=== PATIENT | female | born 1950 | race Two or more races ===

== ENCOUNTER 2017-11-10 23:06 | Inpatient (IN) | payer OTHER, MEDICARE ==
[~2017-11-10] VITALS: Ht 157.5 cm; Wt 62.6 kg
--- NOTE | 2017-11-10 23:13 | NUR ---
PT BIB RA WITH A C/O HYPOTENTION. PT HAS TREMORS, BUT IS NOT ACITVLY SEIZING. PT IS TAKING TO DR. ENRIQUEZ. PT TAKEN TO ROOM #5. PT IS ON THE MONITOR AND CONTINUOUS PULSE OX. PT HAS 20G IV LT WRIST VULCANIZED FIBER UNIT OPERATOR. BLOOD DRAWN AND SENT TO LAB.
[2017-11-10 23:43] LABS: HEMATOCRIT 30 % (33-45); HEMOGLOBIN 9.8 g/dL (11.5-14.8); LYMPHOCYTES # (AUTO) 0.7 /CMM (0.8-4.8); LYMPHOCYTES % (AUTO) 4.7 % (20.0-44.0); MEAN CORPUSCULAR HEMOGLOBIN 30 PG (26.0-33.0); MEAN CORPUSCULAR HGB CONC 33 g/dl (31.0-36.0); MEAN CORPUSCULAR VOLUME 92 fL (82-100); MONOCYTES # (AUTO) 0.8 /CMM (0.1-1.30); MONOCYTES % (AUTO) 5.3 % (2.0-12.0); NEUTROPHILS # (AUTO) 12.9 /CMM (1.8-8.9); PLATELET COUNT (AUTO) 249 /CMM (150-450); RDW COEFFICIENT OF VARIATION 15.2 (11.5-15.0); RED BLOOD CELL COUNT(AUTO) 3.27 MIL/uL (4.0-5.2); WHITE BLOOD COUNT (AUTO) 14.4 K/uL (4.3-11.0)
[2017-11-10 23:52] LABS: CALCIUM, SERUM 8.6 mg/dL (8.5-10.1); CARBON DIOXIDE 22 mmol/L (21-32); CHLORIDE 100 mmol/L (98-107); CREATININE 3.7 mg/dL (0.6-1.3); GLUCOSE 173 mg/dL (74-106); POTASSIUM 3.6 mmol/L (3.5-5.1); SODIUM SERUM 140 mmol/L (136-145); UREA NITROGEN, BLOOD 58 mg/dL (7-18)
[2017-11-11] VITALS (24 sets, daily range): BP systolic 91–144; BP diastolic 26–79
[2017-11-11] LABS: TROPONIN I 0.026 ng/mL (0.00-0.056)
--- NOTE | 2017-11-11 | NUR ---
IN AND OUT JURADO CATH INSERTED. CLOUDY YELLOW URINE WITH SEDIMENT NOTED.
[2017-11-11 00:05] LABS: ALANINE AMINOTRANSFERASE 24 U/L (12-78); ALBUMIN 3.3 g/dL (3.4-5.0); ALKALINE PHOSPHATASE 60 U/L (46-116); ASPARTATE AMINOTRANSFERASE 32 U/L (15-37); B-TYPE NATRIURETIC PEPTIDE 2450 PG/ML (0-125); BILIRUBIN,DIRECT 0.1 mg/dL (0.0-0.2); BILIRUBIN,TOTAL 0.3 mg/dL (0.2-1.0); TOTAL PROTEIN, SERUM 7.2 g/dL (6.4-8.2)
--- NOTE | 2017-11-11 00:15 | NUR ---
LITER NS STARTED.
[2017-11-11] MEDS ORDERED: CEFTRIAXONE 1 G in IV D5W 50 ML IV ONE (00:30)
[2017-11-11 00:34] LABS: APPEARANCE,URINE SL CLOUDY (CLEAR); BILIRUBIN,URINE NEGATIVE (NEGATIVE); BLOOD, URINE 1+ Ery/uL (NEGATIVE); COLOR,URINE YELLOW (YELLOW); KETONES,URINE TRACE (NEGATIVE); LEUKOCYTE ESTERASE ,URINE 2+ (NEGATIVE); NITRITE, URINE NEGATIVE (NEGATIVE); PROTEIN,URINE 2+ mg/dl (NEGATIVE); UGLUCOSE NEGATIVE (NEGATIVE); UROBILINOGEN,URINE 0.2 EU/dL (0.2)
[2017-11-11 00:50] LABS: BACTERIA,URINE Few /HPF (None Seen); SQUAMOUS EPITHELIAL CELL,UR Rare /HPF (None Seen); WBC,URINE 51-80 /HPF (0-3)
[2017-11-11] MEDS ORDERED: CEFTRIAXONE 1GM BAG (ER ONLY) 50 ML IV ONE (00:51)
[2017-11-11] MEDS ORDERED: IV NS 0.9% 1,000 ML BAG IV ONE ×3 (01:00→01:30)
[2017-11-11] MEDS ORDERED: NOREPINEPHRINE 4 MG/4 ML AMPUL IV ONE (01:17)
[2017-11-11] MEDS ORDERED: NOREPINEPHRINE 8 MG in IV D5W 500 ML IV ONE (01:30)
--- NOTE | 2017-11-11 01:30 | NUR ---
PT APPEARS TO BE RESTING COMFORTABLY. PT'S DAUGHTER LEFT AND WILL RETURN IN THE AM.
--- NOTE | 2017-11-11 01:30 | NUR ---
LEVOPHED STARTED AT 2MCG/MIN, 4.36ML/HR
[2017-11-11] MEDS ORDERED: Z GUARD REMEDY 2 OZ OINT TP PRN (02:30)
[2017-11-11] MEDS ORDERED: HYDROCODONE/APAP 5/325MG 1 EACH TABLET PO PRN (02:30)
[2017-11-11] MEDS ORDERED: NOREPINEPHRINE 8 MG in IV D5W 500 ML IV PRN (02:30)
[2017-11-11] MEDS ORDERED: MAGNESIUM HYDROXIDE 30 ML UDC PO PRN (02:30)
[2017-11-11] MEDS ORDERED: ZOLPIDEM TARTRATE 5 MG TABLET PO PRN (02:30)
[2017-11-11] MEDS ORDERED: ONDANSETRON HCL/PF 4 MG/2 ML VIAL IVP PRN (02:30)
[2017-11-11] MEDS ORDERED: DEXTROSE 50%-WATER 50 ML DISP.SYRIN IV PRN (02:30)
--- NOTE | 2017-11-11 02:32 | NUR ---
REPORT GIVEN TO GEOVANI RÍOS - ICU. ENDORSED REASSESSMENT OF PT AFTER SEPSIS FLUID FINISHED INFUSING.
[2017-11-11] MEDS ORDERED: MEROPENEM 500 MG VIAL IV ONE (03:09)
[2017-11-11] MEDS: MEROPENEM 500 MG in IV NS 0.9% 50 ML IV SCH ×3 (03:11→14:46)
[2017-11-11] MEDS: IV NS 0.9% 1,000 ML IV PRN ×2 (03:12→19:00)
--- NOTE | 2017-11-11 05:03 | NUR ---
COMMUNITY OUTREACH MANAGER. ADMISSION. RECEIVED THE PT FROM ER VIA [employer]. ADMITTING DIAGNOSIS IS SEPSIS.WILL CONTINUE TO MONITOR VITALS. PT AWAKE, ALERT, FOLLOW COMMANDS. NURSING TECH SHOWING S TACH. OXYGEN 2L VIA NASAL CANNULA. SAT 98%. NO ACUTE DISTRESS NOTED. IV LT HAND 20G, LT WRIST 20G. FC PATENT. URINE DRAINING. IVF NS 75ML/H. HOB ELEVATED. TURN AND REPOSITION Q2H,
[2017-11-11 05:17] LABS: BASOPHILS % (AUTO) 0.1 % (0.0-2.0); EOSINOPHILS % (AUTO) 0.1 % (0.0-6.0); HEMATOCRIT 29 % (33-45); HEMOGLOBIN 9.9 g/dL (11.5-14.8); LYMPHOCYTES # (AUTO) 0.8 /CMM (0.8-4.8); LYMPHOCYTES % (AUTO) 6.9 % (20.0-44.0); MEAN CORPUSCULAR HEMOGLOBIN 30 PG (26.0-33.0); MEAN CORPUSCULAR HGB CONC 34 g/dl (31.0-36.0); MEAN CORPUSCULAR VOLUME 90 fL (82-100); MONOCYTES # (AUTO) 0.4 /CMM (0.1-1.30); MONOCYTES % (AUTO) 3.9 % (2.0-12.0); NEUTROPHILS # (AUTO) 10.2 /CMM (1.8-8.9); PLATELET COUNT (AUTO) 248 /CMM (150-450); RDW COEFFICIENT OF VARIATION 14.4 (11.5-15.0); RED BLOOD CELL COUNT(AUTO) 3.24 MIL/uL (4.0-5.2); WHITE BLOOD COUNT (AUTO) 11.4 K/uL (4.3-11.0)
[2017-11-11 05:35] LABS: CALCIUM, SERUM 7.6 mg/dL (8.5-10.1); CREATININE 2.4 mg/dL (0.6-1.3); POTASSIUM 3.9 mmol/L (3.5-5.1)
[2017-11-11 05:39] LABS: MAGNESIUM 1.5 mg/dL (1.8-2.4); PHOSPHORUS 4.1 mg/dL (2.5-4.9)
--- NOTE | 2017-11-11 06:25 | NUR ---
INDEPENDENT BEAUTY CONSULTANT. FC PLACED, WITH OUT DIFFICULTY.URINE DRAINING.
--- NOTE | 2017-11-11 07:15 | NUR ---
HEAD OPERATOR NOTES RECEIVED PATIENT AOX1-2 GRENADIAN SPEAKING , NOT IN ACUTE DISTRESS , RESPIRATIONS EVEN AND UNLABORED WITH SPO2 OF 100% VIA 2LPM NC , ST 120 ON BEDSIDE MONITOR , FC DRAINING WELL VIA GRAVITY WITH CLOUDY YELLOW URINE , L HAND # 20 AND L WRIST # 20 PATENT AND INTACT WITH NS @ 75ML/HR INFUSING WELL , ALL NEEDS ATTENDED , BED ON LOW AND LOCKED POSITION , SIDE RAILS X2 ,CALL LIGHT WITHIN REACH , HOB @ 35 WILL CONTINUE TO MONITOR
[2017-11-11] MEDS ORDERED: ESCI5TAB PO (08:06)
[2017-11-11] MEDS ORDERED: METF500T4 PO (08:06)
[2017-11-11] MEDS ORDERED: SITA50TA PO (08:06)
[2017-11-11] MEDS ORDERED: TAMS-12 PO (08:06)
[2017-11-11] MEDS ORDERED: GUAI5SYR PO (08:06)
[2017-11-11] MEDS ORDERED: ASCO500T9 PO (08:06)
[2017-11-11] MEDS ORDERED: ACET-868 PO (08:06)
[2017-11-11] MEDS ORDERED: ATOR10TA PO (08:06)
[2017-11-11] MEDS ORDERED: INSU100V7 SQ (08:06)
[2017-11-11] MEDS ORDERED: POLY15DR40 EACHEYE ×2 (08:06)
[2017-11-11] MEDS ORDERED: FAMO20TA8 PO (08:06)
[2017-11-11] MEDS ORDERED: MAGN400O6 PO (08:06)
[2017-11-11] MEDS ORDERED: ACET-2605 PO (08:06)
[2017-11-11] MEDS ORDERED: IBUP-1953 PO (08:06)
[2017-11-11] MEDS ORDERED: ERGO500040 PO (08:06)
[2017-11-11] MEDS ORDERED: LOSA50TA3 PO (08:06)
[2017-11-11] MEDS ORDERED: BLOO-697 IN (08:06)
[2017-11-11] MEDS ORDERED: IPRA3AMP IH (08:06)
[2017-11-11] MEDS ORDERED: ASPI1CPM PO (08:06)
[2017-11-11] MEDS ORDERED: FERR-58 PO (08:06)
[2017-11-11] MEDS ORDERED: GABA-532 PO (08:06)
[2017-11-11] MEDS ORDERED: TOPI25TA PO (08:07)
[2017-11-11] MEDS: BLOOD SUGAR DIAGNOSTIC 1 EACH STRIP IN SCH ×4 (08:44→21:58)
[2017-11-11] MEDS: HEPARIN SODIUM, PORCINE 5000 UNITS/1 ML VIAL SQ SCH ×2 (08:54→21:56)
--- NOTE | 2017-11-11 10:09 | NUR ---
BUSINESS PLANNING ANALYST NOTES SEEN BY DEBBY ANDRADE , DISCUSSED LABS , PENDING CULTURES , OFF PRESSORS WITH STABLE BP , AFEBRILE , TROPONIN OF 0.115 , SHOWED PATIENT POLST IN THE CHART , NO AUTOMATIC TYPEWRITER INSPECTOR REVIEWED AND PLACED CODE STATUS ORDER . PER AUTOMATIC TYPEWRITER INSPECTOR OK TO DOWNGRADE PT TO [facility]
[2017-11-11] MEDS ORDERED: ASPIRIN 325 MG TABLET PO ONE (10:30)
[2017-11-11] MEDS: ACETAMINOPHEN 325 MG TABLET PO PRN (12:00)
--- NOTE | 2017-11-11 12:00 | NUR ---
MC KAY MACHINE OPERATOR NOTES PT HAS A TEMPERATURE OF 102.7 F VIA ORAL THERMOMETER , COOLING MEASUSRES RENDERED , TYLENOL 650MG ADMINISTERED , WILL RE ASSESS TEMP
[2017-11-11] MEDS ORDERED: Magnesium 1GM/D5W 100ML PREMIX 100 ML IV SCH (12:24)
--- NOTE | 2017-11-11 13:00 | NUR ---
AERONAUTICAL ENGINEERING OFFICER NOTES PT TEMP OF 98.5 , WILL CONTINUE TO MONITOR
--- NOTE | 2017-11-11 13:40 | NUR ---
DELIMER NOTES RECEIVED A CALL FROM LAB REGARDING TROPONIN OF 1.114 , NOTIFIED DEBBY ANDRADE , PT DENIES CHEST PAIN AT THIS TIME , , F/U FOR CARDIO CONSULT , PER INSPECTOR AUTOMATIC TYPEWRITER ORDER ANOTHER TROPONIN AFTER 6 HOURS .ORDER CARRIED OUT Addendum: 11/11/17 at 1512 by RAMAN WEINSTEIN RN FOLLOWED UP WITH DEBBY ANDRADE TO REVIEW AND START MEDICATION RECON ,
--- NOTE | 2017-11-11 14:15 | NUR ---
SOFTWARE APPLICATIONS DEVELOPER NOTES TRANSFERRED PT TO [facility] VIA ACLS PROTOCOL , PT STABLE AT THIS TIME , TEMP OF 99.7 F , REPORT GIVEN TO RENATA FOR CONTINUITY OF CARE ,
--- NOTE | 2017-11-11 14:19 | NUR ---
[facility] RN NOTE PATIENT RECEIVED FROM ICU AWAKE ALERT X1 , OPEN EYES WHEN CALL HER NAME , PLACED ON TELE SR 81 , WITH JURADO CATH WITH YELLOW COLOR URINE, ON IVF ORDERED ORDERED IV HL ON LT HAND INTACT, NO REDNESS ,NO SWELLING NOTED , BED IN LOWEST AND LOCKED POSITION , ON 2L NC , NO SOB NOTED , CALL LIGHT WITHIN REACH, CONT ON COOLING MEASURE ,WILL CONT TO MONITOR CLOSELY
--- NOTE | 2017-11-11 17:30 | NUR ---
[facility] OLIVO NOTE PATENT UNABLE TO SWALLOW WELL,DEBBY CRUZ RN CONING MACHINE OPERATOR NOTIFIED WITH ORDER PUREE DIET AND BOOST , ORDER CARRIED OUT Addendum: 11/11/17 at 1818 by RENATA PALOMO RN FAMILY AT BEDSIDE ,ALL NEEDS ATTENDED NOT IN ACUTE DISTRESS
[2017-11-11] MEDS: BOOST GLUCOSE CONTROL VANILLA 237 ML BOX PO SCH (18:06)
--- NOTE | 2017-11-11 18:50 | NUR ---
[facility] RN NOTE TROPONIN 1.341 .CALLED DEBBY KRISHNAMURTHY RN MANAGER SUPPLY CHAIN PLANNING , NO C\O CHEST PAIN ,NO DIZZINESS, FAMILY AT BEDSIDE , NOTIFIED THAT DR KRUEGER DID NOT CAME YET , WILL F]U ORDERED REPEAT TROPONIN IN 6 HOUR AT 12 MIDNIGHT ,ORDER CARRIED OUT
--- NOTE | 2017-11-11 19:30 | NUR ---
[facility] RN INITIAL NOTES RECEIVED PATIENT AWAKE A/OX2, ABLE TO MAKE NEEDS KNOWN. TAJIK SPEAKING. DENIES PAIN OR DISCOMFORT. DENIES SOB. SKIN WARM AND DRY TO TOUCH. RESPIRATION EVEN AND UNLABORED, ON 3LPMO2 VIA NC. ON TELE MONITOR SR 87. F/C PATENT AND INTACT, DRAINING BY GRAVITY. HOB ELEVATED. SIDE RAILS UP AND LOCKED. BED KEPT AT LOWEST POSITION. CALL LIGHT KEPT WITHIN EASY REACH. WILL CONTINUE TO MONITOR.
[2017-11-11] MEDS: INSULIN REGULAR, HUMAN 100 UNIT/ML 3 ML VIAL SQ PRN (22:04)
[2017-11-12] VITALS (7 sets, daily range): BP systolic 105–157; BP diastolic 53–100
--- NOTE | 2017-11-12 02:00 | NUR ---
[facility] RN NOTES RECEIVED CRITICAL FROM LAB TROPONIN 1.011, TRENDING DOWN FROM PREVIOUS 1.341, TAM HILTON MADE AWARE WITH NO NEW ORDERS. WILL CONTINUE TO MONITOR.
[2017-11-12] MEDS: MEROPENEM 500 MG in IV NS 0.9% 50 ML IV SCH ×2 (03:15→15:29)
[2017-11-12] MEDS: ACETAMINOPHEN 325 MG TABLET PO PRN ×2 (04:08→17:17)
--- NOTE | 2017-11-12 04:31 | NUR ---
PATIENT AWAKE ALERT AND ORIENTED. NO RESPIRATORY DISTRESS NOTED. NOTED WITH ORAL TEMP 103.1, COOLING MEASURES RENDERED, WILL CONTINUE TO MONITOR.
--- NOTE | 2017-11-12 05:08 | NUR ---
RECHECKED TEMP 102.4. WILL CONTINUE TO COOLING MEASURES.
--- NOTE | 2017-11-12 06:30 | NUR ---
[facility] RN CLOSING NOTES PATIENT WITH TMAX 103.1, COOLING MEASURES AND TYLENOL RENDERED, CURRENTLY ORAL TEMP 98.5. NO C/O OF PAIN OR DISCOMFORT. NO RESPIRATORY DISTRESS NOTED, ON 2LPMO2 VIA NC. ALL NEEDS ANTICIPATED AND MET. SR ON TELE MONITOR. IVF RUNNING. HOB ELEVATED. DVT PUMPS IN PLACE. SIDE RAILS UP AND LOCKED. BED KEPT AT LOWEST POSITION. CALL LIGHT KEPT WITHIN EASY REACH. WILL ENDORSE CONTINUITY OF CARE TO AM NURSE.
[2017-11-12] MEDS: BLOOD SUGAR DIAGNOSTIC 1 EACH STRIP IN SCH ×4 (08:23→21:16)
[2017-11-12] MEDS: BOOST GLUCOSE CONTROL VANILLA 237 ML BOX PO SCH ×2 (08:23→17:18)
[2017-11-12] MEDS: HEPARIN SODIUM, PORCINE 5000 UNITS/1 ML VIAL SQ SCH ×2 (08:25→21:11)
[2017-11-12 08:30] LABS: CALCIUM, SERUM 8.1 mg/dL (8.5-10.1); CREATININE 1.1 mg/dL (0.6-1.3); POTASSIUM 3.1 mmol/L (3.5-5.1)
[2017-11-12 08:33] LABS: MAGNESIUM 1.7 mg/dL (1.8-2.4); PHOSPHORUS 2.1 mg/dL (2.5-4.9)
[2017-11-12 08:43] LABS: BASOPHILS % (AUTO) 0.3 % (0.0-2.0); EOSINOPHILS % (AUTO) 0.1 % (0.0-6.0); HEMATOCRIT 31 % (33-45); HEMOGLOBIN 10.2 g/dL (11.5-14.8); LYMPHOCYTES # (AUTO) 0.8 /CMM (0.8-4.8); MEAN CORPUSCULAR HEMOGLOBIN 30 PG (26.0-33.0); MEAN CORPUSCULAR HGB CONC 33 g/dl (31.0-36.0); MEAN CORPUSCULAR VOLUME 90 fL (82-100); MONOCYTES # (AUTO) 0.3 /CMM (0.1-1.30); MONOCYTES % (AUTO) 4.6 % (2.0-12.0); NEUTROPHILS # (AUTO) 5.6 /CMM (1.8-8.9); PLATELET COUNT (AUTO) 255 /CMM (150-450); RDW COEFFICIENT OF VARIATION 14.2 (11.5-15.0); RED BLOOD CELL COUNT(AUTO) 3.44 MIL/uL (4.0-5.2); WHITE BLOOD COUNT (AUTO) 6.7 K/uL (4.3-11.0)
[2017-11-12] MEDS: IV NS 0.9% 1,000 ML IV PRN (10:10)
[2017-11-12] MEDS: Magnesium 1GM/D5W 100ML PREMIX 100 ML IV SCH ×2 (10:11→11:38)
[2017-11-12] MEDS: CARVEDILOL 6.25 MG TABLET PO SCH ×2 (10:11→20:45)
[2017-11-12] MEDS: POTASSIUM CHLORIDE 20 MEQ TAB.PRT.SR PO SCH ×3 (10:12→13:12)
[2017-11-12 11:24] LABS: BAND % (MANUAL) 7 % (0.0-5.0); LYMPHOCYTES % (MANUAL) 10 % (16-48); MONOCYTES % (MANUAL) 2 % (0-11.0); NEUTROPHILS % (MANUAL) 81 (42-76)
[2017-11-12] MEDS: INSULIN REGULAR, HUMAN 100 UNIT/ML 3 ML VIAL SQ PRN ×3 (11:48→21:15)
[2017-11-12] MEDS ORDERED: K PHOS NEUTRAL 250 MG TABLET PO ONE (14:00)
--- NOTE | 2017-11-12 14:00 | NUR ---
RN NOTE ASKED TO RACKING MACHINE OPERATOR NEGERETE TO REVIEW HOME MEDS FOR PT.
--- NOTE | 2017-11-12 15:58 | NUR ---
RN NOTE PT HAS A FEVER, 103.0 AXILLARY, COMMERCIAL ENERGY AUDITOR DEBBY ANDRADE NOTIFIED HE SAID TO ORDER BLOOD CULTURES AND HE WILL ASK ID TO SEE THE PT. COOLING MEASURES INITIATED. WILL MONITOR.
--- NOTE | 2017-11-12 17:15 | NUR ---
RN NOTE REPORT GIVEN TO HANSA OLIVO FOR ROBSON.
--- NOTE | 2017-11-12 17:30 | NUR ---
RN NOTES RECEIVED REPORT FROM POLLY FOR [facility]. PATIENT FEBRILE. COOLING MEASURES IMPLEMENTED. TYLENOL GIVEN.
--- NOTE | 2017-11-12 19:40 | NUR ---
RN CLOSING NOTES PATIENT RESTING COMFORTABLE IN BED. DENIES PAIN. RESPIRATIONS EVEN AND UNLABORED. SATURATING ADEQUATELY ON 2L. NO ACUTE DISTRESS. BED LOCKED IN THE LOWEST POSITION WITH SIDERAILS UP X2. CALL LIGHT WITHIN REACH. AFEBRILE. WILL ENDORSE TO NIGHT RN FOR ROBSON.
[2017-11-12] MEDS ORDERED: ASPIRIN 81 MG TAB.CHEW ONE (20:50)
[2017-11-12] MEDS: ASPIRIN 81 MG TAB.CHEW PO SCH (21:11)
[2017-11-13] VITALS (7 sets, daily range): BP systolic 104–130; BP diastolic 57–77
[2017-11-13] MEDS ORDERED: CARVEDILOL 12.5 MG TABLET ONE (02:37)
[2017-11-13] MEDS: MEROPENEM 500 MG in IV NS 0.9% 50 ML IV SCH ×2 (02:43→14:58)
[2017-11-13] MEDS: IV NS 0.9% 1,000 ML IV PRN ×2 (02:44→22:05)
--- NOTE | 2017-11-13 02:49 | NUR ---
NURSING CLINICAL NOTES Pt has a HR of 122, Radha, is notified and ordered one time coreg 12.5 mg. order is carried out will continue to monitor for any changes.
[2017-11-13] MEDS ORDERED: CARVEDILOL 12.5 MG TABLET PO SCH (03:00)
[2017-11-13 06:34] LABS: BASOPHILS % (AUTO) 0.2 % (0.0-2.0); EOSINOPHILS % (AUTO) 0.2 % (0.0-6.0); HEMATOCRIT 31 % (33-45); HEMOGLOBIN 10.7 g/dL (11.5-14.8); LYMPHOCYTES # (AUTO) 0.7 /CMM (0.8-4.8); LYMPHOCYTES % (AUTO) 11.1 % (20.0-44.0); MEAN CORPUSCULAR HEMOGLOBIN 31 PG (26.0-33.0); MEAN CORPUSCULAR HGB CONC 34 g/dl (31.0-36.0); MEAN CORPUSCULAR VOLUME 89 fL (82-100); MONOCYTES # (AUTO) 0.4 /CMM (0.1-1.30); MONOCYTES % (AUTO) 7.3 % (2.0-12.0); NEUTROPHILS % (AUTO) 81.2 % (43.0-81.0); PLATELET COUNT (AUTO) 247 /CMM (150-450); RED BLOOD CELL COUNT(AUTO) 3.52 MIL/uL (4.0-5.2); WHITE BLOOD COUNT (AUTO) 6.1 K/uL (4.3-11.0)
[2017-11-13 06:48] LABS: CALCIUM, SERUM 7.9 mg/dL (8.5-10.1); CREATININE 0.9 mg/dL (0.6-1.3); POTASSIUM 3.7 mmol/L (3.5-5.1)
[2017-11-13] MEDS: BLOOD SUGAR DIAGNOSTIC 1 EACH STRIP IN SCH ×4 (06:49→22:12)
[2017-11-13 06:52] LABS: ALBUMIN 2.5 g/dL (3.4-5.0); BILIRUBIN,TOTAL 0.4 mg/dL (0.2-1.0); MAGNESIUM 2.1 mg/dL (1.8-2.4); PHOSPHORUS 1.8 mg/dL (2.5-4.9); TOTAL PROTEIN, SERUM 6.6 g/dL (6.4-8.2)
[2017-11-13 06:58] LABS: TROPONIN I 1.36 ng/mL (0.00-0.056)
--- NOTE | 2017-11-13 07:33 | NUR ---
NURSING CLINICAL NOTE: received a call from the lab regarding critical lab value of troponin of 1.360. pt is A&O X 3, denies chest pain. no distress noted. NP. clay is notified and ordered EKG and repeat troponin in 6 hours, all orders are carried out and endorsed to the next nurse to follow up .
--- NOTE | 2017-11-13 08:00 | NUR ---
rn telehealth note patient in bed . alert , oriented x3 on tele monitor sr 89, on 2l nc sat 99%, with hamilton cath to gravity with yellow color urine,, lt wrist hl with redness noted and leaking , lt hand hl intact will cont o ivf as ordered, bed in lowest and locked position ,, on both legs with dvt pumps as ordered, bed in lowest and locked position. no sob noted will cont to monitor closely
[2017-11-13] MEDS: ASPIRIN 81 MG TAB.CHEW PO SCH (08:13)
[2017-11-13] MEDS: HEPARIN SODIUM, PORCINE 5000 UNITS/1 ML VIAL SQ SCH ×2 (08:14→22:10)
[2017-11-13] MEDS: CARVEDILOL 6.25 MG TABLET PO SCH ×2 (08:16→22:11)
[2017-11-13] MEDS: BOOST GLUCOSE CONTROL VANILLA 237 ML BOX PO SCH ×2 (08:59→16:34)
[2017-11-13 11:46] LABS: LYMPHOCYTES % (MANUAL) 5 % (16-48); MONOCYTES % (MANUAL) 12 % (0-11.0); NEUTROPHILS % (MANUAL) 83 (42-76)
--- NOTE | 2017-11-13 12:00 | NUR ---
BIODIESEL PLANT OPERATIONS ENGINEER NOTE EKG RESULT NOTIFIED TO DEBBY COLES AWARE PHOS LEVEL 13.8 WITH NEW ORDER GIVEN, FED PATIENT BY ADMITTING MANAGER, ALL NEEDS ATTENDED
[2017-11-13] MEDS: INSULIN REGULAR, HUMAN 100 UNIT/ML 3 ML VIAL SQ PRN ×3 (12:38→22:14)
[2017-11-13] MEDS ORDERED: K PHOS NEUTRAL 250 MG TABLET PO ONE (13:30)
[2017-11-13] MEDS: ACETAMINOPHEN 325 MG TABLET PO PRN (15:05)
--- NOTE | 2017-11-13 20:00 | NUR ---
RN INITIAL NOTES PATIENT RESTING COMFORTABLE IN BED. DENIES PAIN. RESPIRATIONS EVEN AND UNLABORED. SATURATING ADEQUATELY ON 2L. NO ACUTE DISTRESS. BED LOCKED IN THE LOWEST POSITION WITH SIDERAILS UP X2. CALL LIGHT WITHIN REACH. WILL CONTINUE TO MONITOR.
[2017-11-13] MEDS ORDERED: CEFEPIME 1 GM in IV D5W 50 ML IV SCH (22:00)
[2017-11-13] MEDS: ATORVASTATIN 40 MG TABLET PO SCH (22:11)
[2017-11-14] VITALS (7 sets, daily range): BP systolic 128–159; BP diastolic 70–88
--- NOTE | 2017-11-14 06:34 | NUR ---
RN CLOSING NOTES PATIENT RESTING COMFORTABLE IN BED. DENIES PAIN. RESPIRATIONS EVEN AND UNLABORED. SATURATING ADEQUATELY ON 2L. NO ACUTE DISTRESS. BED LOCKED IN THE LOWEST POSITION WITH SIDE RAILS UP X2. CALL LIGHT WITHIN REACH. WILL ENDORSE TO AM RN.
--- NOTE | 2017-11-14 07:30 | NUR ---
YARN PREPARATION SUPERVISOR AM NOTES PT IN BED, AAOX3, ON 4L O2 NC, NOT IN ANY DISTRESS, HUNGARIAN SPPEAKING, TELEMETRY READS, SINUS TACH 100, DENIES ANY CHEST PAIN/DISCOMFORT, LEFT WRIST G 20 WITH NS AT 75 ML/HR INFUSING WELL, SITE CLEAR, JURADO CATH IN PLACE, ADEQUATE AMOUNT OF URINE OUTPUT. BED REST, INTACT SKIN, CCHO PUREED DIET, BOTH LEGS ON DVT, BED LOW LOCKED, CALL LIGHT WITHIN REACH, WILL CONT TO MONITOR.
[2017-11-14 07:49] LABS: BASOPHILS % (AUTO) 0.4 % (0.0-2.0); EOSINOPHILS % (AUTO) 0.3 % (0.0-6.0); HEMATOCRIT 28 % (33-45); HEMOGLOBIN 9.5 g/dL (11.5-14.8); LYMPHOCYTES # (AUTO) 1.1 /CMM (0.8-4.8); LYMPHOCYTES % (AUTO) 18.5 % (20.0-44.0); MEAN CORPUSCULAR HEMOGLOBIN 30 PG (26.0-33.0); MEAN CORPUSCULAR HGB CONC 33 g/dl (31.0-36.0); MEAN CORPUSCULAR VOLUME 89 fL (82-100); MONOCYTES # (AUTO) 0.7 /CMM (0.1-1.30); NEUTROPHILS # (AUTO) 4.3 /CMM (1.8-8.9); NEUTROPHILS % (AUTO) 69.8 % (43.0-81.0); PLATELET COUNT (AUTO) 233 /CMM (150-450); RDW COEFFICIENT OF VARIATION 14.2 (11.5-15.0); RED BLOOD CELL COUNT(AUTO) 3.18 MIL/uL (4.0-5.2); WHITE BLOOD COUNT (AUTO) 6.1 K/uL (4.3-11.0)
[2017-11-14] MEDS: BLOOD SUGAR DIAGNOSTIC 1 EACH STRIP IN SCH ×4 (08:16→21:51)
--- NOTE | 2017-11-14 08:16 | NUR ---
RAILCAR BRAKE OPERATOR NOTES PATIENT HAVING LABORED BREATHING. VS BP 150/85, RR32, OR 105 O2 SAT 77 AT 4L O2 NASAL CANULA. ACCUCHECK DONE. BS 200 MG/DL. NO INSULIN COVERAGE GIVEN. PATIENT PLACED ON NPO FOR NOW. PATIENT PLACED ON NON REBREATHER MASK AT 100%. O2 SAT AT 94% -96%. ABG ORDERED.
[2017-11-14 08:42] LABS: CREATININE 0.9 mg/dL (0.6-1.3); PHOSPHORUS 2.3 mg/dL (2.5-4.9); POTASSIUM 3.3 mmol/L (3.5-5.1)
[2017-11-14] MEDS: BOOST GLUCOSE CONTROL VANILLA 237 ML BOX PO SCH ×2 (08:43→17:28)
[2017-11-14 08:46] LABS: ABG BASE EXCESS -3.6 mmol/L; ABG OXYGEN SATURATION 95.5 % (92.0-98.5); ABG PCO2 41.4 mmHg (35.0-45.0); ABG PH 7.341 (7.350-7.450); ABG PO2 90.2 mmHg (75.0-100.0); AaDO2 436.7 mmHg; COHb 0.3 % (0.5-1.5); MetHb 0.3 % (0.0-1.5); O2Hb 94.9 % (94.0-97.0); SITE, ABG Left Radial; VENT MODE, BG NRM
[2017-11-14] MEDS: CLOPIDOGREL BISULFATE 75 MG TABLET PO SCH (09:00)
[2017-11-14] MEDS: ASPIRIN 81 MG TAB.CHEW PO SCH (09:00)
[2017-11-14] MEDS: CARVEDILOL 6.25 MG TABLET PO SCH ×2 (09:00→21:50)
--- NOTE | 2017-11-14 09:30 | NUR ---
VA[facility] RN NOTES PATIENT PLACED ON VA[facility] AND NPO PER DR. CARBAJAL.
[2017-11-14] MEDS: MEROPENEM 1 G in IV NS 0.9% 100 ML IV SCH ×2 (10:03→21:50)
--- NOTE | 2017-11-14 10:03 | NUR ---
PATIENT SERVICE REP NOTES STARTED ANGEL HOFFMANN.
[2017-11-14] MEDS: HEPARIN SODIUM, PORCINE 5000 UNITS/1 ML VIAL SQ SCH ×2 (10:06→21:51)
[2017-11-14] MEDS: IV NS 0.9% 1,000 ML IV PRN (10:08)
[2017-11-14] MEDS: POTASSIUM CHLORIDE 20 MEQ POWDER PACKET NG SCH ×2 (12:25→14:04)
--- NOTE | 2017-11-14 12:33 | NUR ---
RN NOTES ACCUCHECK BS 193 MG/DL, NO INSULIN COVERAGE. NPO FOR NOW.
[2017-11-14] MEDS: IPRATROPIUM NEB FS 0.5 MG/2.5 ML AMPUL.NEB NEB SCH ×4 (13:00→23:24)
[2017-11-14] MEDS ORDERED: K PHOS NEUTRAL 250 MG TABLET PO ONE (14:30)
[2017-11-14] MEDS ORDERED: FUROSEMIDE 20 MG/2 ML VIAL IV ONE (15:30)
--- NOTE | 2017-11-14 17:32 | NUR ---
RN NOTES ACCUCHECK BS 259 MG/DL, HUM R 6 UNITS PER SS GIVEN.
[2017-11-14] MEDS: INSULIN REGULAR, HUMAN 100 UNIT/ML 3 ML VIAL SQ PRN ×2 (17:34→21:59)
--- NOTE | 2017-11-14 18:36 | NUR ---
RN NOTES PT IN BED, AAOX3, ON NON REBREATHER AT 100% O2 SAT AT 98%. NOT IN ANY DISTRESS, BELGIAN SPEAKING, FAMILY AT BEDSIDE. TELEMETRY READS, SINUS TACH 114, DENIES ANY CHEST PAIN/DISCOMFORT, RT HAND G 22 FLUSHES WELL, SITE CLEAR, JURADO CATH IN PLACE, 1500 OUTPUT. BED REST, INTACT SKIN, CCHO PUREED DIET, BOTH LEGS ON DVT, BED LOW LOCKED, CALL LIGHT WITHIN REACH, ALL NEEDS MET, PM CARE DONE, NO OTHER SIGNIFICANT CHANGE IN CONDITION. WILL ENDORSE TO NEXT SHIFT FOR ROBSON.
--- NOTE | 2017-11-14 19:05 | NUR ---
[facility] RN OPENING NOTES RECEIVED REPORT FROM MILI OLIVO. PATIENT A/A/O X3, MOSTLY POLISH-SPEAKING BUT ABLE TO MAKE SOME NEEDS KNOWN & STATE PAIN. BREATHING EVEN & UNLABORED, ON O2 10L VIA SIMPLE MASK. DENIES SOB OR DIFFICULTY BREATHING. SATING WELL @ 96-97%. ON TELE SINUS TACH IN THE 100S. DENIES ANY CHEST PAIN. RIGHT HAND IV #22 INTACT & PATENT W/ DRESSING CDI, SALINE LOCKED. DENIES ANY PAIN OR DICOMFORT @ THIS TIME. SAFETY MEASURES IN PLACE W/ SIDE RAILS UP, BED LOCKED & IN LOWEST POSITION & CALL LIGHT WITHIN REACH. BILATERAL SOFT WRIST RESTRAINTS CONTINUED. WILL CONTINUE TO MONITOR.
[2017-11-14] MEDS: ATORVASTATIN 40 MG TABLET PO SCH (21:47)
[2017-11-15] VITALS (7 sets, daily range): BP systolic 134–156; BP diastolic 71–81
[2017-11-15] MEDS: IPRATROPIUM NEB FS 0.5 MG/2.5 ML AMPUL.NEB NEB SCH ×6 (03:05→23:30)
--- NOTE | 2017-11-15 07:00 | NUR ---
RN NOTES RECEIVED PT ON BED, A/Ox3, MOSTLY GERMAN-SPEAKING BUT ABLE TO MAKE SOME NEEDS KNOWN , BREATHING EVEN & UNLABORED, ON O2 8L VIA SIMPLE MASK. NO DISTRESS NOTED, ON TELE SR HR IN 90'S, DENIES ANY CHEST PAIN. RIGHT HAND IV G 22 INTACT & PATENT W/ DRESSING CDI, JURADO DRAINING TO GRAVITY , SR UP x3, BED LOCKED & IN LOCKED AND IN LOWEST POSITION , CALL LIGHT WITHIN REACH. WILL CONTINUE TO MONITOR.
[2017-11-15] MEDS: BLOOD SUGAR DIAGNOSTIC 1 EACH STRIP IN SCH ×4 (07:30→21:33)
[2017-11-15 08:22] LABS: BASOPHILS % (AUTO) 0.2 % (0.0-2.0); EOSINOPHILS % (AUTO) 0.3 % (0.0-6.0); HEMATOCRIT 28 % (33-45); HEMOGLOBIN 9.5 g/dL (11.5-14.8); LYMPHOCYTES # (AUTO) 1.2 /CMM (0.8-4.8); LYMPHOCYTES % (AUTO) 14.6 % (20.0-44.0); MEAN CORPUSCULAR HEMOGLOBIN 31 PG (26.0-33.0); MEAN CORPUSCULAR HGB CONC 34 g/dl (31.0-36.0); MEAN CORPUSCULAR VOLUME 90 fL (82-100); MONOCYTES # (AUTO) 0.9 /CMM (0.1-1.30); MONOCYTES % (AUTO) 11.5 % (2.0-12.0); NEUTROPHILS % (AUTO) 73.4 % (43.0-81.0); PLATELET COUNT (AUTO) 263 /CMM (150-450); RDW COEFFICIENT OF VARIATION 13.5 (11.5-15.0); RED BLOOD CELL COUNT(AUTO) 3.12 MIL/uL (4.0-5.2); WHITE BLOOD COUNT (AUTO) 8.1 K/uL (4.3-11.0)
[2017-11-15] MEDS: MEROPENEM 1 G in IV NS 0.9% 100 ML IV SCH (08:34)
[2017-11-15] MEDS: CARVEDILOL 6.25 MG TABLET PO SCH ×2 (08:35→21:30)
[2017-11-15] MEDS: HEPARIN SODIUM, PORCINE 5000 UNITS/1 ML VIAL SQ SCH ×2 (08:35→21:30)
[2017-11-15] MEDS: ASPIRIN 81 MG TAB.CHEW PO SCH (08:36)
[2017-11-15] MEDS: INSULIN REGULAR, HUMAN 100 UNIT/ML 3 ML VIAL SQ PRN ×4 (08:37→21:35)
[2017-11-15] MEDS: BOOST GLUCOSE CONTROL VANILLA 237 ML BOX PO SCH ×2 (08:39→16:57)
[2017-11-15] MEDS: CLOPIDOGREL BISULFATE 75 MG TABLET PO SCH (08:40)
[2017-11-15 08:50] LABS: CALCIUM, SERUM 8.1 mg/dL (8.5-10.1); POTASSIUM 3.2 mmol/L (3.5-5.1)
--- NOTE | 2017-11-15 13:11 | NUR ---
RN NOTES SUPPORTIVE FAMILY AT THE BEDSIDE , ON 6L O2 SIMPLE MASK AT THIS TIME, O2 SAT 95-96%. NO SOB NOTED .
[2017-11-15] MEDS ORDERED: POTASSIUM CHLORIDE 20 MEQ POWDER PACKET GT ONE (16:30)
[2017-11-15] MEDS ORDERED: FUROSEMIDE 20 MG/2 ML VIAL IV ONE (16:30)
[2017-11-15] MEDS: POTASSIUM CL. PREMIX PERIPHER. 50 ML IV SCH ×2 (17:37→18:39)
--- NOTE | 2017-11-15 19:18 | NUR ---
RN NOTES PT STABLE , STILL ON 6L O2 FACE MASK , NO SOB NOTED, O2 SAT 98%, PT IS MOUTH BREATHER , SR UP x3, CALL LIGHT WITHIN EASY REACH, BED LOCKED AND IN LOWEST POSITION , WILL ENDORSE TO THIRD HAND NURSE FOR ROBSON .
--- NOTE | 2017-11-15 19:30 | NUR ---
LIFESTYLE DIRECTOR INITIAL NOTES RECEIVED PATIENT AWAKE A/OX2, ABLE TO MAKE NEEDS KNOWN. DENIES PAIN OR DISCOMFORT. RESTING COMFORTABLY. DENIES SOB ON 6LPMO2 VIA MASK. ON TELE MONITOR SR 89. F/C PATENT AND INTACT, DRAINING BY GRAVITY. HOB ELEVATED. SIDE RAILS UP AND LOCKED. BED KEPT AT LOWEST POSITION. CALL LIGHT KEPT WITHIN EASY REACH. WILL CONTINUE TO MONITOR.
[2017-11-15] MEDS ORDERED: CEFTAZIDIME 1 G in IV D5W 50 ML IV SCH (21:00)
[2017-11-15] MEDS: ATORVASTATIN 40 MG TABLET PO SCH (21:30)
[2017-11-15] MEDS: MEROPENEM 500 MG in IV NS 0.9% 50 ML IV SCH (21:31)
[2017-11-16] VITALS: BP 115/66
[2017-11-16] MEDS: IPRATROPIUM NEB FS 0.5 MG/2.5 ML AMPUL.NEB NEB SCH ×6 (03:30→23:52)
[2017-11-16 04:00] VITALS: BP 129/75
[2017-11-16 07:26] LABS: BASOPHILS % (AUTO) 0.1 % (0.0-2.0); EOSINOPHILS # (AUTO) 0.2 /CMM (0.0-0.7); EOSINOPHILS % (AUTO) 2.5 % (0.0-6.0); HEMATOCRIT 27 % (33-45); HEMOGLOBIN 9.2 g/dL (11.5-14.8); LYMPHOCYTES # (AUTO) 1.4 /CMM (0.8-4.8); MEAN CORPUSCULAR HEMOGLOBIN 30 PG (26.0-33.0); MEAN CORPUSCULAR HGB CONC 34 g/dl (31.0-36.0); MEAN CORPUSCULAR VOLUME 90 fL (82-100); MONOCYTES # (AUTO) 0.9 /CMM (0.1-1.30); MONOCYTES % (AUTO) 13.1 % (2.0-12.0); NEUTROPHILS # (AUTO) 4.1 /CMM (1.8-8.9); NEUTROPHILS % (AUTO) 63.3 % (43.0-81.0); PLATELET COUNT (AUTO) 281 /CMM (150-450); RDW COEFFICIENT OF VARIATION 14.9 (11.5-15.0); RED BLOOD CELL COUNT(AUTO) 3.04 MIL/uL (4.0-5.2); WHITE BLOOD COUNT (AUTO) 6.5 K/uL (4.3-11.0)
[2017-11-16 07:40] LABS: CREATININE 0.8 mg/dL (0.6-1.3)
[2017-11-16] MEDS: BLOOD SUGAR DIAGNOSTIC 1 EACH STRIP IN SCH ×4 (07:54→21:30)
[2017-11-16 08:00] VITALS: BP_SYST 142; BP_SYST 144; BP_SYST 150; BP_DIAS 49; BP_DIAS 71; BP_DIAS 85
[2017-11-16] MEDS: BOOST GLUCOSE CONTROL VANILLA 237 ML BOX PO SCH ×2 (08:00→18:15)
[2017-11-16] MEDS: INSULIN REGULAR, HUMAN 100 UNIT/ML 3 ML VIAL SQ PRN ×4 (08:05→21:39)
--- NOTE | 2017-11-16 08:23 | NUR ---
RESERVE OFFICER CLOSING NOTES NO SIGNIFICANT CHANGES OVERNIGHT. PATIENT SLEPT WELL THROUGH THE NIGHT. ALL DUE MEDS GIVEN. AFEBRILE. NO N/V. NO C/O PAIN OR DISCOMFORT. NO C/O SOB. ALL NEEDS ANTICIPATED AND MET. F/C PATENT AND INTACT, DRAINING BY GRAVITY. KEPT CLEAN AND DRY. TURNED AND REPOSITIONED Q2 AND PRN. HOB ELEVATED. SIDE RAILS UP AND LOCKED. BED KEPT AT LOWEST POSITION. CALL LIGHT KEPT WITHIN EASY REACH. CONTINUITY OF CARE ENDORSED TO AM NURSE.
[2017-11-16 08:31] LABS: POTASSIUM 3.4 mmol/L (3.5-5.1)
[2017-11-16] MEDS: MEROPENEM 500 MG in IV NS 0.9% 50 ML IV SCH ×2 (09:34→21:30)
[2017-11-16] MEDS: CLOPIDOGREL BISULFATE 75 MG TABLET PO SCH (09:37)
[2017-11-16] MEDS: ASPIRIN 81 MG TAB.CHEW PO SCH (09:38)
[2017-11-16] MEDS: CARVEDILOL 6.25 MG TABLET PO SCH ×2 (09:38→21:34)
[2017-11-16] MEDS: HEPARIN SODIUM, PORCINE 5000 UNITS/1 ML VIAL SQ SCH ×2 (09:43→21:32)
[2017-11-16] MEDS ORDERED: POTASSIUM CHLORIDE 20 MEQ POWDER PACKET GT ONE (11:15)
[2017-11-16 12:00] VITALS: BP 141/92
[2017-11-16] MEDS ORDERED: FUROSEMIDE 20 MG/2 ML VIAL IV ONE (12:00)
[2017-11-16 16:00] VITALS: BP 146/85
--- NOTE | 2017-11-16 19:05 | NUR ---
WAFER ABRADING MACHINE TENDER OPENING NOTES RECEIVED REPORT FROM JOYCE OLIVO. PATIENT A/A/O X2, MOSTLY OCCITAN SPEAKING BUT ABLE TO MAKE SOME NEEDS KNOWN & STATE PAIN. BREATHING EVEN & UNLABORED, ON O2 4L VIA NC, TOLERATING WELL. DENIES SOB OR DIFFICULTY BREATHING. ON TELE SINUS RHYTHM IN THE 80S. LEFT HAND IV #24 NOTED W/ OCCLUSION, TO BE REMOVED & REPLACED W/ NEW IV SITE. JURADO CATH INTACT & DRAINING YELLOW URINE. DENIES ANY PAIN OR DISCOMFORT @ THIS TIME. SAFETY MEASURES IN PLACE W/ SIDE RAILS UP, BED LOCKED & IN LOWEST POSITION & CALL LIGHT WITHIN REACH. WILL CONTINUE TO MONITOR.
--- NOTE | 2017-11-16 19:21 | NUR ---
Nurse closing Note: Daughter at bedside, Johana said patient did not sleep at night. Notes by the night nurse states patient slept through the night. No request for pain medication, refused lunch, took dinner, daughter fed the patient. Patient took the boost for diabetic. Rosales to gravity. Patient is tolerating nasal cannula 4 liter, pulse ox 96-98%. No complaints of any respiratory distress.
[2017-11-16 20:00] VITALS: BP 128/75
--- NOTE | 2017-11-16 20:00 | NUR ---
RN NOTES LEFT HAND IV REMOVED D/T OCCLUSION. NEW IV #22 PLACED ON LEFT FOREARM W/ GOOD BLOOD RETURN. PATIENT TOLERATED PROCEDURE WELL.
[2017-11-16] MEDS: ATORVASTATIN 40 MG TABLET PO SCH (21:35)
[2017-11-17] VITALS: BP 136/78
[2017-11-17] MEDS: IPRATROPIUM NEB FS 0.5 MG/2.5 ML AMPUL.NEB NEB SCH ×5 (03:15→19:45)
[2017-11-17 04:00] VITALS: BP 116/68
--- NOTE | 2017-11-17 07:05 | NUR ---
RN INITIAL NOTE PATIENT RECEIVED IN BED RESTING COMFORTABLY. PATIENT IS EASILY AROUSED, ALERT PRIMARILY DANISH SPEAKING. NO S/S OF PAIN OR DISCOMFORT. DENIES PAIN AT THIS TIME. SINUS RHYTHM ON TELE MONITOR. RESPIRATIONS ARE EVEN AND UNLABORED. NO S/S OF RESPIRATORY DISTRESS OR SOB. SATING WELL ON 2L NASAL CANULA. SKIN IS WARM AND DRY TO TOUCH. IV SITE FLUSHED, AND PATENT. JURADO CATHETER DRAINING TO GRAVITY. SAFETY PRECAUTIONS IMPLEMENTED. BED IN LOCKED, LOW POSITION WITH TWO SIDE RAILS UP. CALL LIGHT AND BELONGINGS WITHIN EASY REACH. WILL CONTINUE TO MONITOR.
[2017-11-17 07:17] LABS: CALCIUM, SERUM 8.4 mg/dL (8.5-10.1); CREATININE 0.7 mg/dL (0.6-1.3); POTASSIUM 3.7 mmol/L (3.5-5.1)
[2017-11-17 08:00] VITALS: BP 151/74
[2017-11-17] MEDS: ASPIRIN 81 MG TAB.CHEW PO SCH (08:15)
[2017-11-17] MEDS: CLOPIDOGREL BISULFATE 75 MG TABLET PO SCH (08:15)
[2017-11-17] MEDS: CARVEDILOL 6.25 MG TABLET PO SCH ×2 (08:16→22:23)
[2017-11-17] MEDS: INSULIN REGULAR, HUMAN 100 UNIT/ML 3 ML VIAL SQ PRN ×4 (08:17→22:29)
[2017-11-17] MEDS: BOOST GLUCOSE CONTROL VANILLA 237 ML BOX PO SCH ×2 (08:20→17:32)
[2017-11-17] MEDS: BLOOD SUGAR DIAGNOSTIC 1 EACH STRIP IN SCH ×4 (08:20→22:27)
[2017-11-17] MEDS: HEPARIN SODIUM, PORCINE 5000 UNITS/1 ML VIAL SQ SCH ×2 (08:20→22:24)
[2017-11-17] MEDS: MEROPENEM 500 MG in IV NS 0.9% 50 ML IV SCH ×2 (08:35→22:21)
[2017-11-17 12:00] VITALS: BP 126/75
[2017-11-17 16:00] VITALS: BP 129/58
[2017-11-17 20:00] VITALS: BP 134/70
--- NOTE | 2017-11-17 20:00 | NUR ---
RN INITIAL NOTE PATIENT RECEIVED IN BED RESTING COMFORTABLY. FAMILY AT BED SIDE. ALERT PRIMARILY MONEGASQUE SPEAKING. NO S/S OF PAIN OR DISCOMFORT. DENIES PAIN AT THIS TIME. SINUS RHYTHM ON TELE MONITOR. RESPIRATIONS ARE EVEN AND UNLABORED. NO S/S OF RESPIRATORY DISTRESS OR SOB. SATING WELL ON 2L NASAL CANULA. SKIN IS WARM AND DRY TO TOUCH. IV SITE FLUSHED, AND PATENT. JURADO CATHETER DRAINING TO GRAVITY. SAFETY PRECAUTIONS IMPLEMENTED. BED IN LOCKED, LOW POSITION WITH TWO SIDE RAILS UP. CALL LIGHT AND BELONGINGS WITHIN EASY REACH. WILL CONTINUE TO MONITOR.
[2017-11-17] MEDS: ATORVASTATIN 40 MG TABLET PO SCH (22:21)
[2017-11-18] VITALS: BP 144/69
[2017-11-18] MEDS: IPRATROPIUM NEB FS 0.5 MG/2.5 ML AMPUL.NEB NEB SCH ×5 (00:06→14:42)
[2017-11-18 00:48] VITALS: BP 144/69
[2017-11-18 04:00] VITALS: BP_SYST 115; BP_SYST 116; BP_SYST 135; BP_SYST 144; BP_SYST 152; BP_DIAS 48; BP_DIAS 52; BP_DIAS 69; BP_DIAS 76; BP_DIAS 77
--- NOTE | 2017-11-18 06:48 | NUR ---
RN CLOSING NOTE NO CHANGE IN PT CONDITION OVERNIGHT. PATIENT RESTING IN BED RESTING COMFORTABLY. FAMILY AT BED SIDE. ALERT PRIMARILY COLOMBIAN SPEAKING. NO S/S OF PAIN OR DISCOMFORT. DENIES PAIN AT THIS TIME. SINUS RHYTHM ON TELE MONITOR. RESPIRATIONS ARE EVEN AND UNLABORED. NO S/S OF RESPIRATORY DISTRESS OR SOB. SATING WELL ON 2L NASAL CANULA. SKIN IS WARM AND DRY TO TOUCH. IV SITE FLUSHED, AND PATENT. JURADO CATHETER DRAINING TO GRAVITY. SAFETY PRECAUTIONS IMPLEMENTED. BED IN LOCKED, LOW POSITION WITH TWO SIDE RAILS UP. CALL LIGHT AND BELONGINGS WITHIN EASY REACH. WILL CONTINUE TO MONITOR.
[2017-11-18 08:00] VITALS: BP 151/81
[2017-11-18] MEDS: BLOOD SUGAR DIAGNOSTIC 1 EACH STRIP IN SCH ×3 (08:36→18:09)
[2017-11-18] MEDS: INSULIN REGULAR, HUMAN 100 UNIT/ML 3 ML VIAL SQ PRN ×3 (08:38→18:12)
[2017-11-18] MEDS: BOOST GLUCOSE CONTROL VANILLA 237 ML BOX PO SCH ×2 (08:40→17:49)
[2017-11-18] MEDS: CLOPIDOGREL BISULFATE 75 MG TABLET PO SCH (09:17)
[2017-11-18] MEDS: MEROPENEM 500 MG in IV NS 0.9% 50 ML IV SCH (09:17)
[2017-11-18] MEDS: ASPIRIN 81 MG TAB.CHEW PO SCH (09:18)
[2017-11-18] MEDS: CARVEDILOL 6.25 MG TABLET PO SCH (09:18)
[2017-11-18 12:00] VITALS: BP 148/59
[2017-11-18] MEDS ORDERED: CARV6.252 PO (14:51)
[2017-11-18] MEDS ORDERED: ASPI-1169 PO (14:51)
[2017-11-18] MEDS ORDERED: MERO500V3 IV (14:51)
[2017-11-18] MEDS ORDERED: CLOP75TA15 PO (14:51)
--- NOTE | 2017-11-18 20:11 | NUR ---
PT ALERT AND ORIENTED. MOSTLY GUATEMALAN SPEAKING. ABLE TO MAKE NEEDS KNOWN. NO C/O PAIN THROUGHT THE SHIFT. BLOOD SUGARS MONITORED. ABD SOFT AND NON DISTENDED. TKO ON LFA. JURADO CATH DRAINING WELL WITH YELLOW COLOR URINE OUTPUT. FAMILY AT BEDSIDE. PT DISCHARGED TO [facility] VIA AMBULANCE WITH JURADO CATH. HL REMOVED. REPORT GIVEN TO PARAMEDICS.
== END 2017-11-18 18:00 | DRG 720 ==
LOC: ER 23:11 → ICU 11-11 01:46 → TELE-TD 11-11 13:56 → TELE1 11-12 10:01 → TELE-TD 11-14 19:54 → TELE1 11-15 14:11 → MEDSG1 11-18 11:49
PROVIDERS: ADMIT Nurse Practitioner Acute Care; ATTEND Nurse Practitioner Acute Care
DX: A41.9 Sepsis, unspecified organism (principal); J96.01 Acute respiratory failure with hypoxia; I21.A1 Myocardial infarction type 2; I50.31 Acute diastolic (congestive) heart failure; N17.0 Acute kidney failure with tubular necrosis; I13.0 Hypertensive heart and chronic kidney disease with heart failure and stage 1 through stage 4 chronic kidney disease, or unspecified chronic kidney disease; J18.9 Pneumonia, unspecified organism; E87.2 Acidosis; R65.20 Severe sepsis without septic shock; N39.0 Urinary tract infection, site not specified; E44.0 Moderate protein-calorie malnutrition; B96.5 Pseudomonas (aeruginosa) (mallei) (pseudomallei) as the cause of diseases classified elsewhere; E11.22 Type 2 diabetes mellitus with diabetic chronic kidney disease; E78.5 Hyperlipidemia, unspecified; E83.39 Other disorders of phosphorus metabolism; E83.42 Hypomagnesemia; E87.6 Hypokalemia; F43.21 Adjustment disorder with depressed mood; G40.909 Epilepsy, unspecified, not intractable, without status epilepticus; I25.10 Atherosclerotic heart disease of native coronary artery without angina pectoris; N18.9 Chronic kidney disease, unspecified; D63.8 Anemia in other chronic diseases classified elsewhere; I69.351 Hemiplegia and hemiparesis following cerebral infarction affecting right dominant side; E88.09 Other disorders of plasma-protein metabolism, not elsewhere classified; F43.20 Adjustment disorder, unspecified; E11.42 Type 2 diabetes mellitus with diabetic polyneuropathy
CPT/HCPCS: 36415; 36600; 71010-TC; 71045; 80048-TC; 80053-TC; 80061-TC; 80076-TC; 81000-TC; 82803-TC; 82962-TC; 83605-TC; 83735-TC; 83880; 84100-TC; 84484-TC; 85025-TC; 87040-TC; 87081-TC; 87086-TC; 87186-TC; 92526; 92611-TC; 93307-TC; 93970-TC; 94762-TC; A4216; A4606; J0692; J0696; J0713; J1644; J1815; J1940; J2185; J3475; J3480; J7030; J7050; J7060; Z7610

== ENCOUNTER 2017-12-13 07:55 | Inpatient (IN) | payer OTHER, MEDICARE ==
[~2017-12-13] VITALS: Ht 147.3 cm; Wt 56.7 kg
[~2017-12-13 07:55] MED LIST: ACET-2605 PO; ACET-868 PO; ASCO500T9 PO; ASPI-1169 PO; ATOR10TA PO; BLOO-697 IN; CARV6.252 PO; CLOP75TA15 PO; ERGO500040 PO; ESCI5TAB PO; FAMO20TA8 PO; FERR-58 PO; GABA-532 PO; GUAI5SYR PO; IBUP-1953 PO; INSU100V7 SQ; IPRA3AMP IH; MAGN400O6 PO; MERO500V3 IV; METF500T4 PO; POLY15DR40 EACHEYE; SITA50TA PO; TAMS-12 PO; TOPI25TA PO
--- NOTE | 2017-12-13 08:00 | NUR ---
[id number] FROM [facility] FOR HYPOGLYCEMIA BS-50'S. IM GLUCAGON GIVEN BY [facility]F STAFF. REPEAT BS BY EMS-91. PATIENT ARRIVED A/OX 3. BREATHING EVEN AND UNLABORED. NO SOB. PATIENT IS HYPOTENSIVE, BUT ASYMPTOMATIC. SAFETY AND COMFORT MEASURES IN PLACE. AWAITING MD ORDERS.
--- NOTE | 2017-12-13 08:15 | NUR ---
NEW IV STARTED ON LFA, 20 G. BLOOD DRAWN AND SENT TO LAB. 1L NS BOLUS STARTED PER DR. BAEZ FOR HYPOTENSION.
--- NOTE | 2017-12-13 08:19 | NUR ---
REPEAT BS 84.
--- NOTE | 2017-12-13 08:44 | NUR ---
XRAY AT BS
--- NOTE | 2017-12-13 08:47 | NUR ---
16 FR hamilton catheter inserted per sterile protocal. Immediate output 75ML of urine, straw color and cloudy.
[2017-12-13 08:59] LABS: BASOPHILS % (AUTO) 0.4 % (0.0-2.0); EOSINOPHILS # (AUTO) 0.2 /CMM (0.0-0.7); EOSINOPHILS % (AUTO) 1.9 % (0.0-6.0); HEMATOCRIT 27 % (33-45); HEMOGLOBIN 9.2 g/dL (11.5-14.8); LYMPHOCYTES # (AUTO) 1.4 /CMM (0.8-4.8); MEAN CORPUSCULAR HEMOGLOBIN 30 PG (26.0-33.0); MEAN CORPUSCULAR HGB CONC 34 g/dl (31.0-36.0); MEAN CORPUSCULAR VOLUME 90 fL (82-100); MONOCYTES # (AUTO) 0.8 /CMM (0.1-1.30); MONOCYTES % (AUTO) 7.5 % (2.0-12.0); NEUTROPHILS # (AUTO) 8.3 /CMM (1.8-8.9); NEUTROPHILS % (AUTO) 77.2 % (43.0-81.0); PLATELET COUNT (AUTO) 306 /CMM (150-450); RDW COEFFICIENT OF VARIATION 14.4 (11.5-15.0); RED BLOOD CELL COUNT(AUTO) 3.04 MIL/uL (4.0-5.2); WHITE BLOOD COUNT (AUTO) 10.8 K/uL (4.3-11.0)
[2017-12-13] MEDS ORDERED: CEFEPIME 1 GM in IV D5W 50 ML IV ONE (09:00)
[2017-12-13] MEDS ORDERED: IV NS 0.9% 1,000 ML BAG IV ONE (09:00)
[2017-12-13 09:01] LABS: APPEARANCE,URINE CLEAR (CLEAR); BILIRUBIN,URINE NEGATIVE (NEGATIVE); BLOOD, URINE TRACE-INTA Ery/uL (NEGATIVE); COLOR,URINE YELLOW (YELLOW); KETONES,URINE NEGATIVE (NEGATIVE); LEUKOCYTE ESTERASE ,URINE 3+ (NEGATIVE); NITRITE, URINE POSITIVE (NEGATIVE); PH,URINE 7.5 (5.0-8.0); PROTEIN,URINE NEGATIVE (NEGATIVE); UGLUCOSE NEGATIVE (NEGATIVE); UROBILINOGEN,URINE 0.2 EU/dL (0.2)
[2017-12-13 09:10] LABS: CALCIUM, SERUM 9.2 mg/dL (8.5-10.1); CARBON DIOXIDE 27 mmol/L (21-32); CHLORIDE 101 mmol/L (98-107); GLUCOSE 79 mg/dL (74-106); POTASSIUM 4.1 mmol/L (3.5-5.1); SODIUM SERUM 136 mmol/L (136-145); UREA NITROGEN, BLOOD 23 mg/dL (7-18)
[2017-12-13 09:12] LABS: INR 0.94 (0.87-1.13)
[2017-12-13] MEDS ORDERED: HYDR-552 PO (09:14)
[2017-12-13] MEDS ORDERED: CARV6.25 PO (09:14)
[2017-12-13] MEDS ORDERED: ASPI1CPM PO (09:14)
[2017-12-13] MEDS ORDERED: LOSA50TA21 PO (09:14)
[2017-12-13 09:17] LABS: TROPONIN I < 0.017 ng/mL (0.00-0.056)
[2017-12-13 09:23] LABS: ALANINE AMINOTRANSFERASE 13 U/L (12-78); ALBUMIN 2.9 g/dL (3.4-5.0); ALKALINE PHOSPHATASE 93 U/L (46-116); ASPARTATE AMINOTRANSFERASE 13 U/L (15-37); BILIRUBIN,TOTAL 0.2 mg/dL (0.2-1.0)
[2017-12-13 09:31] LABS: SQUAMOUS EPITHELIAL CELL,UR Rare /HPF (None Seen); WBC,URINE 81-100 /HPF (0-3)
[2017-12-13 09:32] LABS: BACTERIA,URINE Rare /HPF (None Seen)
[2017-12-13] MEDS ORDERED: VANCOMYCIN 1 GM in IV D5W 250 ML IV ONE (10:00)
--- NOTE | 2017-12-13 10:23 | NUR ---
[facility] PAGED DR. RICHARDSON WILL COME TO ER SHORTLY
--- NOTE | 2017-12-13 11:13 | NUR ---
REPORT GIVEN TO VERONICA OLIVO FOR ROBSON UPON ADMISSION.
--- NOTE | 2017-12-13 11:38 | NUR ---
PATIENT TRANSPORTED TO 306-1 VIA ACLS PROTOCOL. VERONICA OLIVO TO PROVIDE ROBSON.
[2017-12-13 11:45] VITALS: BP 131/64
--- NOTE | 2017-12-13 11:45 | NUR ---
tele linen room custodian: admission admitted this 67 yr old female pt from e.. with dx: uti/pneumonia. awake, a/ox2-3; wolof speaking only with periods of forgetfulness and disorientation to situation. reality orientation provided prn with wolof staff translating. no c/o sob, chest pain, or any discomfort at this time. placed pt on tele sr=80's. in no apparent distress noted. will continue to monitor.
[2017-12-13] MEDS ORDERED: DEXTROSE 50%-WATER 50 ML DISP.SYRIN IV PRN (12:00)
[2017-12-13] MEDS ORDERED: MAGNESIUM HYDROXIDE 30 ML UDC PO PRN (12:00)
[2017-12-13] MEDS ORDERED: ZOLPIDEM TARTRATE 5 MG TABLET PO PRN (12:00)
[2017-12-13] MEDS ORDERED: Z GUARD REMEDY 2 OZ OINT TP PRN (12:00)
[2017-12-13] MEDS ORDERED: GUAIFENESIN/D-METHORPHAN HB 5 ML UDC PO PRN (12:00)
[2017-12-13] MEDS ORDERED: ONDANSETRON HCL/PF 4 MG/2 ML VIAL IVP PRN (12:00)
[2017-12-13] MEDS ORDERED: MAG HYDROX/AL HYDROX/SIMETH 30 ML UDC PO PRN (12:00)
[2017-12-13] MEDS ORDERED: POLYVINYL ALCOHOL 15 ML BOTTLE EACHEYE PRN (12:00)
[2017-12-13] MEDS ORDERED: HYDROCODONE/APAP 5/325MG 1 EACH TABLET PO PRN (12:00)
[2017-12-13] MEDS: BLOOD SUGAR DIAGNOSTIC 1 EACH STRIP IN SCH ×3 (12:32→22:12)
[2017-12-13] MEDS: IV NS 0.9% 1,000 ML IV PRN (12:32)
[2017-12-13] MEDS ORDERED: MEROPENEM 1 G in IV NS 0.9% 100 ML IV SCH (13:00)
[2017-12-13] MEDS ORDERED: FEE PK DOSING 1 MIN EA MC ONE (13:17)
--- NOTE | 2017-12-13 14:00 | NUR ---
tele tower supervisor: notes resting comfortable in bed with no distress noted. ivf infusing well. will continue to monitor.
[2017-12-13] MEDS: GABAPENTIN 100 MG CAPSULE PO SCH ×2 (14:21→18:10)
[2017-12-13] MEDS: LINAGLIPTIN 5 MG TABLET PO SCH (14:21)
[2017-12-13] MEDS: ENOXAPARIN SODIUM 40 MG/0.4 ML DISP.SYRIN SQ SCH (14:21)
[2017-12-13] MEDS: MEROPENEM 1 G in IV NS 0.9% 100 ML IV SCH (14:30)
--- NOTE | 2017-12-13 16:00 | NUR ---
tele product support technician: notes in bed awake, watching tv. no distress noted. will continue to monitor.
--- NOTE | 2017-12-13 17:36 | NUR ---
tele logistics associate: notes bs check=47. no s/s of hypo/hyperglycemia noted. pt having dinner. orange juice given. will continue to monitor.
[2017-12-13 17:38] VITALS: BP 172/68
--- NOTE | 2017-12-13 17:46 | NUR ---
tele glazier metal furniture: notes pt remains asymptomatic. re check bs=58. pt still having dinner. orange juice given. will continue to monitor.
--- NOTE | 2017-12-13 17:58 | NUR ---
tele final armature tester: notes pt remains asymptomatic. re check bs=58, family visiting. will continue to monitor.
--- NOTE | 2017-12-13 18:09 | NUR ---
tele glazier metal furniture: notes pt remains asymptomatic. re check bs=42. d50 ivp given by rn at 1811. family remains at bedside. will continue to monitor.
[2017-12-13] MEDS: METFORMIN 500 MG TABLET PO SCH (18:10)
--- NOTE | 2017-12-13 18:44 | NUR ---
tele wood ski maker: notes pt remains asymptomatic. family at bedside. re check os=187. needs attended. instructed to call for assistance. will continue to monitor.
--- NOTE | 2017-12-13 19:24 | NUR ---
RN OPENING NOTES PT AWAKE AND RESTING IN BED. PT IS A ICELANDIC SPEAKER. NO COMPLAINTS OF PAIN, SOB OR DISTRESS AT THIS TIME. PT HAS A LEFT FOREARM #20 IV, INTACT AND RUNNING NS @75 ML/HR. PT HAS A JURADO CATHETER INTACT AND DRAINING WELL. SAFETY PRECAUTIONS IN PLACE. BED IN LOW, LOCKED POSITION, X2 SIDERAILS UP CALL LIGHT WITHIN REACH. WILL CONTINUE TO MONITOR.
[2017-12-13 20:00] VITALS: BP 136/55
[2017-12-13] MEDS: AGGRENOX(ASA/DIPYRIDAMOLE) 1 CAP CPMP.12HR PO SCH (20:27)
[2017-12-13] MEDS ORDERED: INSULIN GLARGINE, 100 UNIT/ML CARTRIDGE SQ SCH (22:00)
--- NOTE | 2017-12-13 22:00 | NUR ---
RN NOTES HELD 16 UNITS OF LANTUS DUE TO PREVIOUS HYPOGLYCEMIA. PATIENT WAS RECEIVED IN THE ER TODAY WITH BLOOD SUGAR IN THE 50'S. FROM 1736-18:09 PT'S BLOOD SUGAR WAS AT THE LOWEST AT 42, AND HIGHEST 58. PT'S BLOOD SUGAR WENT UP TO 159 AT 1844. WHEN CHECKED AGAIN AT 2214 PTS BLOOD SUGAR WAS 211. GAVE PT 4 UNITS OF INSULIN PER SLIDING SCALE. WILL ENDORSE TO DAY SHIFT NURSE TO ENSURE BLOOD SUGAR WITHIN NORMAL LIMITS.
[2017-12-13] MEDS: VANCOMYCIN 0.75 GM in IV D5W 250 ML IV SCH (22:12)
[2017-12-13] MEDS: ATORVASTATIN 10 MG TABLET PO SCH (22:27)
--- NOTE | 2017-12-13 22:27 | NUR ---
RN NOTES ON FIRST MED PULL OF LIPITOR, NURSE ACCIDENTLY PULLED OUT ONE 10MG TABLET, MD ORDER IS 20MG. PULLED ANOTHER 10MG TABLET TO EQUAL THE 20MG ORDERED. IN THE OMNICELL ONE TABLET OF LIPITOR REMAINED AFTER SECOND PULL. COUNT WAS UPDATED TO REFLECT ACCURATE AMOUNT OF TABLETS.
[2017-12-13] MEDS: INSULIN REGULAR, HUMAN 100 UNIT/ML 3 ML VIAL SQ PRN (22:29)
[2017-12-14] VITALS: BP 141/70
[2017-12-14] MEDS: MEROPENEM 1 G in IV NS 0.9% 100 ML IV SCH ×2 (01:25→15:46)
[2017-12-14 04:00] VITALS: BP 146/75
[2017-12-14 06:38] LABS: BASOPHILS % (AUTO) 0.4 % (0.0-2.0); EOSINOPHILS # (AUTO) 0.3 /CMM (0.0-0.7); EOSINOPHILS % (AUTO) 2.9 % (0.0-6.0); HEMATOCRIT 25 % (33-45); HEMOGLOBIN 8.5 g/dL (11.5-14.8); LYMPHOCYTES # (AUTO) 1.2 /CMM (0.8-4.8); LYMPHOCYTES % (AUTO) 13.5 % (20.0-44.0); MEAN CORPUSCULAR HEMOGLOBIN 30 PG (26.0-33.0); MEAN CORPUSCULAR HGB CONC 34 g/dl (31.0-36.0); MEAN CORPUSCULAR VOLUME 90 fL (82-100); MONOCYTES # (AUTO) 0.7 /CMM (0.1-1.30); MONOCYTES % (AUTO) 7.9 % (2.0-12.0); NEUTROPHILS # (AUTO) 6.5 /CMM (1.8-8.9); NEUTROPHILS % (AUTO) 75.3 % (43.0-81.0); PLATELET COUNT (AUTO) 295 /CMM (150-450); RDW COEFFICIENT OF VARIATION 14.4 (11.5-15.0); RED BLOOD CELL COUNT(AUTO) 2.81 MIL/uL (4.0-5.2); WHITE BLOOD COUNT (AUTO) 8.7 K/uL (4.3-11.0)
--- NOTE | 2017-12-14 06:50 | NUR ---
RN NOTES PT BLOOD SUGAR IS 55. WILL GIVE ORANGE JUICE AND RECHECK.
[2017-12-14 06:55] LABS: THYROID STIMULATING HORMONE 0.76 uIU/mL (0.358-3.74)
[2017-12-14 06:59] LABS: CALCIUM, SERUM 8.2 mg/dL (8.5-10.1); CREATININE 0.6 mg/dL (0.6-1.3); MAGNESIUM 1.3 mg/dL (1.8-2.4); PHOSPHORUS 2.5 mg/dL (2.5-4.9); POTASSIUM 3.8 mmol/L (3.5-5.1)
--- NOTE | 2017-12-14 07:05 | NUR ---
RN NOTES RECHECKED PT BLOOD SUGAR 82.
--- NOTE | 2017-12-14 07:15 | NUR ---
RN OPENING NOTES REPORT GIVEN TO RESTING IN BED. PT IS A MALAY SPEAKER. NO COMPLAINTS OF PAIN, SOB OR DISTRESS AT THIS TIME. PT HAS A LEFT FOREARM #20 IV, INTACT AND RUNNING NS @75 ML/HR. PT HAS A JURADO CATHETER INTACT AND DRAINING WELL. SAFETY PRECAUTIONS IN PLACE. BED IN LOW, LOCKED POSITION, X2 SIDE RAILS UP CALL LIGHT WITHIN REACH. WILL ENDORSE TO DAY SHIFT NURSE FOR CONTINUITY OF CARE. Addendum: 12/14/17 at 1937 by BINDU GARCIA RN rn closing notes
[2017-12-14] MEDS: BLOOD SUGAR DIAGNOSTIC 1 EACH STRIP IN SCH ×4 (07:17→23:09)
[2017-12-14] MEDS: IV NS 0.9% 1,000 ML IV PRN (07:36)
[2017-12-14 08:00] VITALS: BP 136/82
--- NOTE | 2017-12-14 08:00 | NUR ---
tele automotive tire technician: initial assessment received pt in bed awake, a/ox2; pitcairn islander speaking only with forgetfulness and disorientation to place and situation. reality orientation provided prn. continue on ivf, infusing well. will continue to monitor.
[2017-12-14] MEDS: TAMSULOSIN 0.4 MG CAP.SR.24H PO SCH (08:34)
[2017-12-14] MEDS: ESCITALOPRAM OXALATE (10 MG) 10 MG TABLET PO SCH (08:35)
[2017-12-14] MEDS: FERROUS SULFATE (325 MG) 325 MG/TAB TABLET PO SCH (08:35)
[2017-12-14] MEDS: LINAGLIPTIN 5 MG TABLET PO SCH (08:35)
[2017-12-14] MEDS: TOPIRAMATE 25 MG TABLET PO SCH (08:35)
[2017-12-14] MEDS: AGGRENOX(ASA/DIPYRIDAMOLE) 1 CAP CPMP.12HR PO SCH ×2 (08:35→20:41)
[2017-12-14] MEDS: GABAPENTIN 100 MG CAPSULE PO SCH ×3 (08:35→16:29)
[2017-12-14] MEDS: METFORMIN 500 MG TABLET PO SCH ×2 (08:35→16:33)
[2017-12-14] MEDS: ENOXAPARIN SODIUM 40 MG/0.4 ML DISP.SYRIN SQ SCH (08:39)
[2017-12-14] MEDS ORDERED: SITAGLIPTIN PHOSPHATE 50 MG TABLET PO SCH (09:00)
[2017-12-14] MEDS: Magnesium 1GM/D5W 100ML PREMIX 100 ML IV SCH ×4 (10:41→14:40)
--- NOTE | 2017-12-14 10:50 | NUR ---
m/s rn integrity: md visit seen and examined by dr. curry with order to hold lantus and tradjenta. orders read back and carried out and acknowledged. pt made aware thru roustabout supervisor.
[2017-12-14] MEDS: INSULIN REGULAR, HUMAN 100 UNIT/ML 3 ML VIAL SQ PRN ×2 (12:00→17:26)
[2017-12-14] MEDS: VANCOMYCIN 0.75 GM in IV D5W 250 ML IV SCH ×2 (12:33→23:09)
[2017-12-14 16:00] VITALS: BP 148/68
--- NOTE | 2017-12-14 16:00 | NUR ---
m/s cryptographic center specialist: notes pt resting comfortable. reality orientation provided prn with welsh staff translating. instructed to call for assistance. no acute distress noted. will continue to monitor.
[2017-12-14] MEDS: LACTOBACILLUS RHAMNOSUS GG 1 EACH CAP.SPRINK PO SCH (16:29)
[2017-12-14] MEDS: ACETAMINOPHEN 325 MG TABLET PO PRN (16:29)
--- NOTE | 2017-12-14 19:37 | NUR ---
RN OPENING NOTES PT AWAKE AND RESTING IN BED. PT IS A DJIBOUTIAN SPEAKER. DAUGHTER AT BEDSIDE. NO COMPLAINTS OF PAIN, SOB OR DISTRESS AT THIS TIME. PT HAS A JURADO CATHETER INTACT AND DRAINING WELL. PT HAS A LEFT WRIST #22 IV RUNNING NS @ 75ML/HR. WILL CONTINUE TO MONITOR PT BLOOD SUGAR. EXPLAINED MONITORING TO DAUGHTER AND PT. SAFETY PRECAUTIONS IN PLACE. BED IN LOW, LOCKED POSITION, X2 SIDE RAILS UP. CALL LIGHT WITHIN REACH. WILL CONTINUE TO MONITOR.
[2017-12-14 20:00] VITALS: BP 138/75
[2017-12-14] MEDS: ATORVASTATIN 10 MG TABLET PO SCH (23:09)
[2017-12-15] MEDS: MEROPENEM 1 G in IV NS 0.9% 100 ML IV SCH ×2 (01:21→14:43)
[2017-12-15] MEDS: IV NS 0.9% 1,000 ML IV PRN (04:17)
[2017-12-15] MEDS: BLOOD SUGAR DIAGNOSTIC 1 EACH STRIP IN SCH ×3 (06:29→17:28)
[2017-12-15] MEDS: ACETAMINOPHEN 325 MG TABLET PO PRN (06:29)
--- NOTE | 2017-12-15 07:10 | NUR ---
MSRN OPENING NOTES. PT RECEIVED A&0X2, AZERBAIJANI SPEAKING, RESTING BUT EASILY AWOKEN. PT WITH O2 VIA NC AT 2LPM, PT DENIES SOB, PT LUNGS AUSCULTATED CONGESTED WITH R SIDE RHONCHI. PT DENIES PAIN. PT WITH IVC AT L WRIST G#22 INTACT AND OPERATIONAL. PT WITH JURADO INTACT AND DRAINING WITH LITE YELLOW URINE IN COLLECTION. BED IN LOWEST LOCKED POSITION WITH HANDRAILSX2 AND CALL ERICKSON WITHIN REACH. PT BRIEFED ON TODAY'S POC AND IS WITHOUT CONCERN OR COMPLAINT AT THIS TIME.
--- NOTE | 2017-12-15 07:15 | NUR ---
RN CLOSING NOTES PT AWAKE AND RESTING IN BED. PT IS A [place] SPEAKER. PT SLEPT WELL THROUGHOUT THE NIGHT. NO SIGNIFICANT CHANGES. NO COMPLAINTS OF PAIN, SOB OR DISTRESS AT THIS TIME. PT HAS A JURADO CATHETER INTACT AND DRAINING WELL. PT HAS A LEFT WRIST #22 IV RUNNING NS @ 75ML/HR. PT BLOOD SUGAR REMAINED WITHIN NORMAL LEVELS THROUGHOUT SHIFT. SAFETY PRECAUTIONS IN PLACE. BED IN LOW, LOCKED POSITION, X2 SIDE RAILS UP. CALL LIGHT WITHIN REACH. WILL ENDORSE TO DAY SHIFT NURSE FOR CONTINUITY OF CARE.
[2017-12-15 07:50] LABS: BASOPHILS % (AUTO) 0.6 % (0.0-2.0); EOSINOPHILS # (AUTO) 0.3 /CMM (0.0-0.7); EOSINOPHILS % (AUTO) 4.4 % (0.0-6.0); HEMATOCRIT 25 % (33-45); HEMOGLOBIN 8.5 g/dL (11.5-14.8); LYMPHOCYTES # (AUTO) 1.6 /CMM (0.8-4.8); LYMPHOCYTES % (AUTO) 21.5 % (20.0-44.0); MEAN CORPUSCULAR HEMOGLOBIN 30 PG (26.0-33.0); MEAN CORPUSCULAR HGB CONC 34 g/dl (31.0-36.0); MEAN CORPUSCULAR VOLUME 90 fL (82-100); MONOCYTES # (AUTO) 0.7 /CMM (0.1-1.30); MONOCYTES % (AUTO) 9.4 % (2.0-12.0); NEUTROPHILS # (AUTO) 4.9 /CMM (1.8-8.9); NEUTROPHILS % (AUTO) 64.1 % (43.0-81.0); PLATELET COUNT (AUTO) 278 /CMM (150-450); RDW COEFFICIENT OF VARIATION 13.9 (11.5-15.0); RED BLOOD CELL COUNT(AUTO) 2.82 MIL/uL (4.0-5.2); WHITE BLOOD COUNT (AUTO) 7.6 K/uL (4.3-11.0)
[2017-12-15 08:00] VITALS: BP 147/79
[2017-12-15 08:31] LABS: CALCIUM, SERUM 8.3 mg/dL (8.5-10.1); CREATININE 0.7 mg/dL (0.6-1.3); MAGNESIUM 1.8 mg/dL (1.8-2.4); PHOSPHORUS 2.5 mg/dL (2.5-4.9)
[2017-12-15] MEDS: TOPIRAMATE 25 MG TABLET PO SCH (09:11)
[2017-12-15] MEDS: GABAPENTIN 100 MG CAPSULE PO SCH ×3 (09:11→17:27)
[2017-12-15] MEDS: TAMSULOSIN 0.4 MG CAP.SR.24H PO SCH (09:11)
[2017-12-15] MEDS: LACTOBACILLUS RHAMNOSUS GG 1 EACH CAP.SPRINK PO SCH ×2 (09:11→17:23)
[2017-12-15] MEDS: FERROUS SULFATE (325 MG) 325 MG/TAB TABLET PO SCH (09:11)
[2017-12-15] MEDS: ESCITALOPRAM OXALATE (10 MG) 10 MG TABLET PO SCH (09:12)
[2017-12-15] MEDS: METFORMIN 500 MG TABLET PO SCH ×2 (09:12→17:00)
[2017-12-15] MEDS: AGGRENOX(ASA/DIPYRIDAMOLE) 1 CAP CPMP.12HR PO SCH (09:14)
[2017-12-15] MEDS: ENOXAPARIN SODIUM 40 MG/0.4 ML DISP.SYRIN SQ SCH (09:15)
[2017-12-15] MEDS: VANCOMYCIN 0.75 GM in IV D5W 250 ML IV SCH (11:05)
[2017-12-15] MEDS: INSULIN REGULAR, HUMAN 100 UNIT/ML 3 ML VIAL SQ PRN (13:13)
[2017-12-15] MEDS ORDERED: CIPR-262 PO (13:52)
[2017-12-15] MEDS ORDERED: LEVO750T21 PO (13:56)
--- NOTE | 2017-12-15 14:47 | NUR ---
DANIELLA JURADO D/C PER PROTOCOL FOR D/C. Addendum: 12/15/17 at 1453 by VICKEY STONE RN 2100ML LITE, CLEAR, YELLOW URINE IN COLLECTION.
[2017-12-15 16:00] VITALS: BP 157/81
[2017-12-15] MEDS ORDERED: CLONIDINE HCL 0.1 MG TABLET PO ONE (17:30)
[2017-12-15 17:34] VITALS: BP 180/85
--- NOTE | 2017-12-15 19:27 | NUR ---
MSRN NOTES. PT PREPARED FOR D/C PER MD. PT WITH O2 VIA NC AT 2LPM, PT DENIES SOB OR PAIN. PT WITH IVC AT L WRIST G#22 INTACT- WILL ENDORSE TO NIGHT NURSE TO REMOVE. PT JURADO D/C AND VOIDED. PT BRIEFED ON SOH D/C PACKET BUT WILL REQUIRE FURTHER EDUCATION AT [facility]. REPORT CALLED TO BINDU AT [facility] AND PT IS EXPECTED. PT AWAITING TRANSPORT. BED IN LOWEST LOCKED POSITION WITH HANDRAILSX2 AND CALL [place] WITHIN REACH. ALL DAY NURSE DUTIES ATTENDED TO AND PT IS WITHOUT CONCERN OR COMPLAINT AT THIS STAGE. ENDORSED TO NIGHT NURSE FOR CARE UNTIL TRANSPORT.
--- NOTE | 2017-12-15 19:35 | NUR ---
RN INITIAL NOTES RECEIVED PT LAYING IN BED WITH HOB ELEVATED. A/O X2, RESPIRATIONS ARE EVEN AND UNLABORED, NOT IN ANY ACUTE DISTRESS NOTED. DTR AT BEDSIDE WITH NO CONCERNS AT THIS TIME. PT DENIES ANY PAIN AT THIS TIME, NO FACIAL GRIMACING OR MOANING NOTED. INSTRUCTED PT AND DTR ON HOW TO USE CALL LIGHT WHEN ASSISTANCE IS NEEDED, CALL LIGHT IS LEFT WITHIN REACH. PT IS SCHEDULED FOR DISCHARGE TODAY AND WILL CONTINUE TO MONITOR.
--- NOTE | 2017-12-15 19:45 | NUR ---
SUPER[employer]ENT [employer]ILD[employer] NOTES PT IS SCHEDULED FOR DISCHARGE. DTR AT BEDSIDE. EXPLAINED THE DISCHARGE PAPERWORK. AMBULANCE ARRIVED 1944. BESIDE REPORT GIVEN TO EMT PERSONNEL. PER PREVIOUS SHIFT, REPORT WAS GIVEN TO [facility]. PT IS NOT IN ANY ACUTE DISTRESS, DENIES ANY PAIN AT THIS TIME. ALL BELONGINGS SENT WITH PT. PERIPHERAL IV TO LEFT WRIST REMOVED W/ NO S/SX OF INFECTION NOTED AND PT TOLERATED WELL. PT LEFT AT 1949 IN STABLE CONDITION VIA GURNEY.
== END 2017-12-15 19:50 | DRG 137 ==
LOC: ER 07:58 → TELE 10:34 → MED 12-14 09:39
DX: J15.6 Pneumonia due to other Gram-negative bacteria (principal); E11.22 Type 2 diabetes mellitus with diabetic chronic kidney disease; E11.649 Type 2 diabetes mellitus with hypoglycemia without coma; I69.351 Hemiplegia and hemiparesis following cerebral infarction affecting right dominant side; G40.909 Epilepsy, unspecified, not intractable, without status epilepticus; I12.9 Hypertensive chronic kidney disease with stage 1 through stage 4 chronic kidney disease, or unspecified chronic kidney disease; I25.10 Atherosclerotic heart disease of native coronary artery without angina pectoris; K21.9 Gastro-esophageal reflux disease without esophagitis; E78.5 Hyperlipidemia, unspecified; N18.9 Chronic kidney disease, unspecified; N39.0 Urinary tract infection, site not specified; D64.9 Anemia, unspecified; Z87.440 Personal history of urinary (tract) infections; Z87.01 Personal history of pneumonia (recurrent); B96.5 Pseudomonas (aeruginosa) (mallei) (pseudomallei) as the cause of diseases classified elsewhere; L89.620 Pressure ulcer of left heel, unstageable; Z79.84 Long term (current) use of oral hypoglycemic drugs; J15.9 Unspecified bacterial pneumonia
CPT/HCPCS: 36415; 71045-TC; 80048-TC; 80061-TC; 80076-TC; 81000-TC; 82962-TC; 83540-TC; 83605-TC; 83735-TC; 84100-TC; 84443-TC; 84484-TC; 85025-TC; 85730-TC; 87040-TC; 87081-TC; 87086-TC; 87186-TC; A4606; J0692; J1650; J1815; J2185; J3370; J3475; J7030; J7060; Z7610